=== PATIENT | female | born 1950 | race Caucasian/White ===

== ENCOUNTER 2018-08-13 06:24 | Day surgery (SDC) | payer MEDICARE, OTHER, MEDICAID ==
[2018-08-13] MEDS ORDERED: PROPOFOL 40 ML (08:49)
[2018-08-13] MEDS ORDERED: ETOMIDATE 20 MG INJ (08:49)
[2018-08-13] MEDS ORDERED: LIDOCAINE 2% (SDV) 5 ML INJ (08:49)
== END 2018-08-13 15:44 | disposition home or self-care (01) ==
LOC: GIL 06:24
DX: R19.4 Change in bowel habit (principal); K64.8 Other hemorrhoids; K57.30 Diverticulosis of large intestine without perforation or abscess without bleeding; K29.50 Unspecified chronic gastritis without bleeding; I25.10 Atherosclerotic heart disease of native coronary artery without angina pectoris; I10 Essential (primary) hypertension
CPT/HCPCS: 43239; 88305; 88312